=== PATIENT | female | born 1950 | race Caucasian/White ===

== ENCOUNTER 2025-02-11 08:04 | Outpatient (CLI) | payer MEDICARE, MEDICAID ==
--- NOTE | 2025-02-11 09:54 | RADIOLOGY REPORT ---
CLINICAL INFORMATION: 74 years old, Female; ABDOMINAL DISCOMFORT. TECHNIQUE: Axial CT images of the abdomen and pelvis were obtained without IV contrast. Coronal and s agittal reformatted images were obtained, reviewed, and stored. Evaluation of the parenchymal organs is limited without IV contrast. Evaluation of the bowel and mesentery is limited without oral contras t. All CT scans at this medical facility are performed using dose modulation techniques as appropriat e to a performed exam including the following: Automated exposure control was utilized; adjustment of the MA and/or KV according to patient size; and use of iterative reconstruction technique. CTDIvol = 34.59 mGy DLP = 1754.6 mGy-cm COMPARISON: None FINDINGS: Lung bases: Lung bases are clear. Moderate hiatal hernia. Liver: Hepatic steatosis. Biliary: Multiple small calcified gallstones in the gallbladder. Spleen: Unremarkable. Pancreas: Grossly unremarkable in its noncontrast enhanced appearance. Adrenal glands: Unremarkable. No mass. Kidneys: No hydronephrosis. No renal or ureteral calculi. Aorta/Vascular: Moderate atherosclerotic calcification. No abdominal aortic aneurysm. Retroperitoneum: No mass or lymphadenopathy. Bowel/mesentery: No small bowel obstruction. No free air or free fluid. Appendix is visualized and ap pears unremarkable. Scattered colonic diverticula without adjacent inflammatory changes to suggest d iverticulitis. Pelvic organs: Grossly unremarkable. Bladder: Unremarkable. No mass. Abdominal wall: Small to moderate fat containing umbilical hernia. Bones: No acute fracture or suspicious intraosseous lesion. IMPRESSION: 1. Scattered colonic diverticula without adjacent inflammatory changes to suggest diverticulitis. 2. Hepatic steatosis. 3. Cholelithiasis. 4. Small to moderate fat containing umbilical hernia. 5. Moderate hiatal hernia.
== END 2025-02-11 23:59 | disposition home or self-care (01) ==
LOC: RAD 08:04
PROVIDERS: ATTEND Family Medicine
DX: K80.20 Calculus of gallbladder without cholecystitis without obstruction (principal); R10.9 Unspecified abdominal pain; I25.10 Atherosclerotic heart disease of native coronary artery without angina pectoris; K57.30 Diverticulosis of large intestine without perforation or abscess without bleeding; K42.9 Umbilical hernia without obstruction or gangrene; K44.9 Diaphragmatic hernia without obstruction or gangrene
CPT/HCPCS: 74176

== ENCOUNTER 2025-07-15 08:48 | Observation (INO) | payer MEDICARE, MEDICAID ==
--- NOTE | 2025-07-08 11:18 | ELECTROCARDIOGRAPH REPORT ---
[facility] Test Date: 2025-07-08 Test Time: 11:15:54 Pat Name: JONELLE PETERS Department: [facility]-PRE-OP Patient ID: [facility]-[id number] Room: Gender: F [employer] Supervisor: : [id number] Requested By: ORION JEWELL Order Number: [id number] Reading MD: Dr. JACKSON Steel Measurements Intervals [place] Rate: 74 P: 69 [place]: 159 QRS: -29 QRSD: 107 T: 24 QT: 391 QTc: 434 Interpretive Statements Sinus rhythm Incomplete left bundle branch block LVH with secondary repolarization abnormality Electronically Signed On 07-08-2025 16:51:[address] JACKSON Steel Please click the below link to view image of tracing.
[2025-07-08 11:24] LABS: MEAN PLATELET VOLUME 7.2 FL (7.4-10.4); PRE OP HEMATOCRIT 40.6 % (35.0-45.0); PRE OP HEMOGLOBIN 13.5 g/dL (12.0-16.0); PRE OP PLATELET COUNT 338 X10'3 (140-440); PRE OP WHITE BLOOD COUNT 9.4 10'3 (4.8-10.8); RED CELL DISTRIBUTION WIDTH 14.6 % (11.5-14.5)
[2025-07-08 11:46] LABS: CREATININE 1.09 MG/DL (0.40-0.90); PRE OP ALT 23 U/L (30-65); PRE OP ANION GAP 5 (8-16); PRE OP AST 13 U/L (10-37); PRE OP BILIRUB, TOTAL 0.3 MG/DL (0.0-1.0); PRE OP GLUCOSE 107 MG/DL (70-104); PRE OP POTASSIUM 3.8 MMOL/L (3.4-5.1); PRE OP SODIUM 138 MMOL/L (135-145); TOTAL CARBON DIOXIDE 31.4 MMOL/L (24-32); eGFR 49 ML/MIN
[2025-07-15] VITALS (19 sets, daily range): BP systolic 114–195; BP diastolic 56–93; PULSE 80–101; RESP 12–21; TEMP 98.6; O2SAT 89–98
[~2025-07-15] VITALS: Ht 165.1 cm; Wt 99.8 kg
[2025-07-15] MEDS: clindamycin-Cleocin 900mg/D5W 50 ML IV ONE (05:30)
[~2025-07-15 08:48] MED LIST: ACET-2971 PO; ALPR-623 PO; AMLO10TA PO; ASPI-612 PO; BUPIVACAINE liposomal/PF 13.3 MG/ML 10mL vial IM ONE; BUPIVAcaine 2.5mg/ml inj 50ml vial (contains preservative) ONE; BUPIVAcaine/PF 2.5mg/ml (0.25%) 10ml vial ONE; CHOL100046 PO; CITA-311 PO; DICY10CA88 PO; HYDR200T80 PO; LIDOcaine 1% 30ml preserv. free vial ONE; LISI40TA20 PO; OMEP20CA16 PO; PRE5T PO
[2025-07-15] MEDS: ringers solution, lacted 1,000 ML IV SCH (09:26)
[2025-07-15] MEDS ORDERED: fentaNYL/PF 50MCG/1 ML 2ML syringe ONE (09:48)
[2025-07-15] MEDS ORDERED: propofol inj 20 ML IV ONE (09:49)
[2025-07-15] MEDS ORDERED: rocuronium 10mg/ml inj IV ONE (09:49)
[2025-07-15] MEDS ORDERED: LIDOcaine 1%/PF 5ML 10 MG/ML VIAL ONE (09:49)
[2025-07-15] MEDS ORDERED: ondansetron/PF 4mg/2ml inj ONE (09:50)
[2025-07-15] MEDS ORDERED: glycopyrrolate 0.2mg/ml inj ONE (09:50)
[2025-07-15] MEDS ORDERED: potassium CL 20mEq in D5-1/2NS 1,000 ML IV SCH (10:00)
[2025-07-15] MEDS ORDERED: ALPRAZolam 0.25mg tablet PO PRN (10:00)
[2025-07-15] MEDS ORDERED: HYDROmorph/NS 0.2 mg/ml PCA 100 ML IV SCH (10:00)
[2025-07-15] MEDS ORDERED: PCA WASTE DOCUMENTATION 1 MG ML MC SCH (10:00)
[2025-07-15] MEDS ORDERED: normal saline 1000ml 1,000 ML IV SCH (10:00)
[2025-07-15] MEDS ORDERED: magnesium hydroxide 30ml (MOM) UD suspension PO SCH (10:00)
[2025-07-15] MEDS: LIDOcaine 1% 30ml preserv. free vial IJ ONE (10:12)
[2025-07-15] MEDS: BUPIVACAINE liposomal/PF 13.3 MG/ML 10mL vial IM ONE (10:12)
[2025-07-15] MEDS: BUPIVAcaine/PF 2.5 mg/ml (0.25%) 30ml vial IJ ONE (10:12)
[2025-07-15] MEDS ORDERED: hydrALAZINE 20mg/ml inj. IV PRN (10:20)
[2025-07-15] MEDS ORDERED: fentaNYL/PF 50MCG/1 ML 2ML syringe IV PRN ×2 (10:20)
[2025-07-15] MEDS ORDERED: morphine 4 MG/ML inj SYRINge IV PRN (10:20)
[2025-07-15] MEDS ORDERED: ondansetron/PF 4mg/2ml inj IV PRN (10:20)
[2025-07-15] MEDS ORDERED: labetalol 20mg/4ml (5mg/ml) syringe IV PRN (10:20)
[2025-07-15] MEDS ORDERED: ringers solution, lacted 1,000 ML IV SCH (10:20)
[2025-07-15] MEDS ORDERED: desflurane 240ml liquid inh. IH ONE (10:45)
[2025-07-15] MEDS ORDERED: dexamethasone sod phosphate 4mg/ml inj. ONE (10:45)
--- NOTE | 2025-07-15 11:21 | HISTORY AND PHYSICAL ---
History & Physical Providers to CC CC: ORION JEWELL MD ~ History of Present Illness Reason for Admit\Complaint: Umbilical hernia History of Present Illness Interval history and physical exam Patient was seen in the office greater than 30 days ago and diagnosed with an umbilical hernia This is symptomatic She denies any change in her past medical history since she was seen in the office (please see previous history and physical exam for all pertinent details) She is scheduled for robotic assisted, laparoscopic umbilical hernia repair with mesh Allergies: Coded Allergies: Penicillins (Verified Allergy, Intermediate, RASH, 07/14/25) clarithromycin (Verified Allergy, Intermediate, RASH, 07/14/25) erythromycin base (Verified Allergy, Intermediate, 07/14/25) tetracycline (Verified Allergy, Intermediate, RASH, 07/14/25) Home Medications Home Medications Active Reported Celexa (Citalopram Hydrobromide) 10 Mg Tablet 30 Mg PO DAILY Bentyl* (Dicyclomine HCl) 10 Mg Capsule 10-20 Mg PO QID Lisinopril* (Lisinopril) 40 Mg Tablet 1 Tab PO DAILY Vitamin D3 (Cholecalciferol (Vitamin D3)) 25 Mcg (1000 Unit) Capsule 5,000 Units PO DAILY Xanax* (Alprazolam) 0.25 Mg Tablet 1 Tab PO DAILY PRN Aspir 81 (Aspirin) 81 Mg Tablet.dr 1 Tab PO DAILY predniSONE tablet (Prednisone) 5 Mg Tablet 1 Tab PO DAILY Tylenol Arthritis (Acetaminophen) 650 Mg Tablet.er 1 Tab PO Q8H Omeprazole Unknown Strength Capsule.dr 1 Cap PO DAILY Plaquenil (Hydroxychloroquine Sulfate) Unknown Strength Tablet 1.5 Tab PO DAILY Amlodipine Besylate 10 Mg Tablet 1 Tablet PO DAILY Exam Vitals: Vital Signs Date Time Temp Pulse Resp B/P (MAP) Pulse Ox O2 Delivery O2 Flow Rate FiO2 07/15/25 09:54 98.6 97 16 98 07/15/25 09:51 195/93 (127) Room Air General: 74-year-old female in no acute distress Chest: Lungs are clear to auscultation bilaterally Cardiovascular: Regular rate and rhythm without murmurs Abdomen: Reducible umbilical hernia Problems: (1) Umbilical hernia Assessment & Plan: The risks, benefits, and alternatives to a robotic assisted, laparoscopic umbilical hernia repair with mesh were discussed with the patient. Risks include, but are not limited to, bleeding, infection, injury to intra- abdominal structures, hernia recurrence and chronic postoperative pain. Patient verbalized understanding and wishes to proceed with surgery. We will do so today as scheduled ORION JEWELL MD Jul 15, 2025 11:21
[2025-07-15] MEDS ORDERED: oxyCODONE/APAP 5-325mg tablet PO PRN (11:30)
[2025-07-15] MEDS ORDERED: acetaminophen 1,000mg/100ml IV 0 ML IV ONE (11:38)
--- NOTE | 2025-07-15 11:39 | OPERATIVE REPORT ---
Operative Report Providers to CC CC: SYLVESTER JEWELL MD ~ Date of Procedure: Jul 15, 2025 Pre-Operative Diagnosis: Umbilical hernia Post-Operative Diagnosis 3.5 cm umbilical hernia Procedure Performed Robotic assisted, laparoscopic mesh repair of a 3.5 cm umbilical hernia Surgeon: Sylvester Jewell MD FACS [employer] Supervisor None Anesthesiologist: Julio Zacarias Type of Anesthesia: General Findings: 3-4 cm umbilical hernia Wound class I Complications None Prosthetics\Implants used: 12 cm diameter coated polyester mesh Estimated Blood Loss: Minimal Specimen Removed: Hernia sac Description of Procedure: Patient was brought to the operating room and identified by the nursing staff and the attending physician. Patient was placed supine and a general anesthesia was induced. Preoperative antibiotics were given. The abdomen was prepped and draped in the standard sterile fashion. Through a left subcostal stab incision the abdomen was accessed with a Veress needle technique. Abdomen was insufflated without incident. The incision was lengthened to accommodate a 12 mm optical trocar and the abdomen was entered under laparoscopic visualization. The abdomen was surveyed laparoscopically. There was an obvious fascial defect at the level of the umbilicus. Under laparoscopic visualization, robotic trochars were placed in the left lateral and left lower quadrant. The da Jadon robotic arm was docked to the patient and instruments guided intra-abdominally under laparoscopic visualization. Peritoneal rent was created just lateral to the midline at the level of the umbilicus. Dissection was carried in the preperitoneal space toward the midline until a fascial defect was encountered. Hernia sac and herniated preperitoneal fat was mobilized out in the hernia sac was excised at the level of the fascial defect. This was set aside. Defect measured about 3-1/2-4 cm in diameter. Fascial defect(s) were then reapproximated with running, absorbable and nonabsorbable, 0V lock suture. Good fascial apposition was obtained without significant tension. A coated polyester mesh was then fixed to the anterior abdominal wall with running, absorbable, 2/0, V lock suture. Mesh laid without wrinkles or folds. The mesh measured 12 cm in diameter The da Jadon instruments were then removed and the robot undocked from the patient. Bilateral transversus abdominis plane nerve blocks by injection were then placed under laparoscopic visualization using a combination of Marcaine and 266 mg of Exparel. The left subcostal trocar was removed and its fascia closed percutaneously with 0 Vicryl suture under laparoscopic visualization. Remaining trochars were removed after the abdomen was allowed to deflate. Skin was closed at all sites with 4-0 Monocryl sutures and dressed with sterile dressings. Patient was awakened and taken to the postanesthesia care unit in stable condition. Counts repoted as correct: Yes SYLVESTER JEWELL MD Jul 15, 2025 11:39
[2025-07-15] MEDS: oxyCODONE/APAP 5-325mg tablet PO PRN (13:21)
[2025-07-16] MEDS ORDERED: enoxaparin 40mg/0.4ml syringe SQ SCH (08:00)
[2025-07-16] MEDS ORDERED: aspirin 81mg, enteric-coated 1 TAB TABLET.DR PO SCH (08:00)
== END 2025-07-15 13:40 | disposition home or self-care (01) ==
LOC: PAS 08:48 → PAS IN 09:59
PROVIDERS: ADMIT Surgery; ATTEND Surgery
DX: K42.9 Umbilical hernia without obstruction or gangrene (principal); R21 Rash and other nonspecific skin eruption; Z88.1 Allergy status to other antibiotic agents; Z88.0 Allergy status to penicillin; Z79.899 Other long term (current) drug therapy
CPT/HCPCS: 49593; 80053; 82948; 93005; 96374; A4215; A4615; A4618; C1781; G0378; J0666; J2710; J3490; J7120; 36415; 85025; 96376; J0131; J1100; J2003; J2270; J2405; J2704; J3010